=== PATIENT | female | born 1970 | race African-American/Black ===

== ENCOUNTER 2016-12-31 16:52 | Emergency (ER) | payer OTHER ==
[~2016-12-31] VITALS: Ht 152.4 cm; Wt 59.0 kg
[2016-12-31 17:02] VITALS: BP 132/85
== END 2016-12-31 18:12 | disposition home or self-care (01) ==
LOC: ER 16:54
DX: S63.92XA Sprain of unspecified part of left wrist and hand, initial encounter (principal); S76.011A Strain of muscle, fascia and tendon of right hip, initial encounter; G62.9 Polyneuropathy, unspecified; W19.XXXA Unspecified fall, initial encounter; Y93.89 Activity, other specified; Y92.89 Other specified places as the place of occurrence of the external cause; Y99.8 Other external cause status
CPT/HCPCS: 73130; 73502